=== PATIENT | male | born 1980 | race Caucasian/White ===

== ENCOUNTER 2021-11-16 05:12 | Emergency (ER) | payer SELFPAY ==
[~2021-11-16] VITALS: Ht 182.8 cm; Wt 117.9 kg
[~2021-11-16 05:12] MED LIST: ANAPROX DS550 MG PO; CIPROFLOXACIN500 MG PO; HYDROCODONE BIT1 T11 PO; MOTRIN800 MG PO; NKHM; PEN-VEE K500 MG PO; ZANTAC150 MG PO
[2021-11-16 05:53] LABS: HEMATOCRIT 46.5 % (42.0-52.0); MEAN CELL VOLUME 90.8 fl (80.0-94.0); MEAN CORPUSCULAR HGB 28.7 pg (27.0-31.0); MEAN CORPUSCULAR HGB CONC 31.6 g/dl (33.0-37.0); MEAN PLATELET VOLUME 11.4 fl (9.6-12.3); PLATELET COUNT AUTOMATED 199 10*3/uL (130-400); RED BLOOD COUNT 5.12 10*6/uL (4.50-5.90); RED CELL DISTRI WIDTH 14.1 % (0-14.5); WHITE BLOOD COUNT 22.5 10*3/uL (4.8-10.8)
[2021-11-16 05:54] LABS: MANUAL DIFF REFLEX YES
[2021-11-16 05:56] LABS: CREATININE 2.7 mg/dL (0.70-1.30); POTASSIUM 3.6 mmol/L (3.5-5.1); TOTAL PROTEIN 7.6 gm/dL (6.4-8.2)
[2021-11-16 06:27] LABS: BASOPHILS 1 % (0-1); PLATELET SUFFICIENCY NORMAL (NORMAL); POLYCHROMASIA SLIGHT; TOTAL CELLS COUNTED 100 #CELLS; TOXIC GRANULATION SLIGHT; VACUOLATION OF NEUTROPHILS SLIGHT
[2021-11-16 06:28] LABS: BURR CELLS FEW
[2021-11-16 08:28] LABS: BILIRUBIN Negative (Negative); BLOOD 1+ (Negative); CLARITY Clear (Clear); COLOR Yellow (Yellow); GLUCOSE 2+ (Negative); KETONE Negative (Negative); LEUKO ESTERASE Negative (Negative); NITRITE Negative (Negative); PH 5.5 (4.5-8.0); SPECIFIC GRAVITY 1.015 (1.001-1.030); UROBILINOGEN 0.2 E.U./dl (0.0-1.0)
[2021-11-16 09:28] LABS: URINE AMPHETAMINES < 1000 (1000ng/ml); URINE BARBITURATES < 200 (200ng/ml); URINE BENZODIAZEPINES < 200 (200ng/ml); URINE CANNABINOIDS (THC) > 50 (50ng/ml); URINE COCAINE < 300 (300ng/ml); URINE METHADONE < 300 (300ng/ml); URINE OPIATES < 300 (300ng/ml)
[2021-11-16 09:30] LABS: BACTERIA 1+; RBC 41-50 rbc/hpf (0-2)
[2021-11-16 09:31] LABS: URINE PHENCYCLIDINE < 25 (25ng/ml)
[2021-11-16] MEDS ORDERED: AUGMENTIN 875-875 MG PO (10:15)
== END 2021-11-16 10:21 | disposition home or self-care (01) ==
LOC: ED 05:12
PROVIDERS: Student in an Organized Health Care Education/Training Program
DX: T40.411A Poisoning by fentanyl or fentanyl analogs, accidental (unintentional), initial encounter (principal); J18.9 Pneumonia, unspecified organism; Y92.89 Other specified places as the place of occurrence of the external cause

== ENCOUNTER 2025-04-15 16:08 | Emergency (ER) | payer SELFPAY ==
[~2025-04-15] VITALS: Wt 108.9 kg
[~2025-04-15 16:08] MED LIST changes: +AUGMENTIN 875-875 MG PO
[2025-04-15] MEDS ORDERED: Acetaminophen/Hydrocodone 5 MG/325 MG TABLET PO ONE (16:50)
[2025-04-15] MEDS ORDERED: ZANAFLEX4 MG PO (19:12)
[2025-04-15] MEDS ORDERED: ZESTRIL20 MG PO (19:12)
[2025-04-15] MEDS ORDERED: NAPROSYN500 MG PO (19:12)
== END 2025-04-15 19:18 | disposition home or self-care (01) ==
LOC: ED 16:08
DX: S16.1XXA Strain of muscle, fascia and tendon at neck level, initial encounter (principal); S46.911A Strain of unspecified muscle, fascia and tendon at shoulder and upper arm level, right arm, initial encounter; S63.92XA Sprain of unspecified part of left wrist and hand, initial encounter; I10 Essential (primary) hypertension; W01.0XXA Fall on same level from slipping, tripping and stumbling without subsequent striking against object, initial encounter; Y93.89 Activity, other specified; Y92.89 Other specified places as the place of occurrence of the external cause; Y99.8 Other external cause status